=== PATIENT | male | born 1980 | race African-American/Black ===

== ENCOUNTER 2019-10-01 00:09 | Emergency (ER) | payer OTHER ==
[~2019-10-01] VITALS: Ht 177.8 cm; Wt 88.6 kg
[2019-10-01] MEDS ORDERED: IBUPROFEN 800 MG TAB PO ONE (01:30)
[2019-10-01 01:42] VITALS: BP 133/75
--- NOTE | 2019-10-01 08:18 | REP ---
Left Ankle: Four Views. History: Inversion injury. Inability to bear weight. FINDINGS: Four views of the left ankle demonstrate an intact ankle mortise. No acute fracture or subluxation is seen. There is an accessory ossicle distal to the tip of the fibula. There is mild anterior soft tissue swelling. Bones, joints, and soft tissues are otherwise unremarkable. IMPRESSION: No fracture seen. Accessory ossicle at the lateral malleolar tip. Electronically Signed by Jose Mendez MD 10/01/2019 09:49 A
== END 2019-10-01 01:43 | disposition home or self-care (01) ==
LOC: M ED 00:09
DX: S93.402A Sprain of unspecified ligament of left ankle, initial encounter (principal); X50.0XXA Overexertion from strenuous movement or load, initial encounter; Y92.84 Military training ground as the place of occurrence of the external cause; Y99.1 Military activity; M89.8X7 Other specified disorders of bone, ankle and foot

== ENCOUNTER → 2019-12-24 | Outpatient (CLI) | payer OTHER | LOC: M LAB 08:47 | PROVIDERS: ATTEND Orthopaedic Surgery | DX: M47.897 Other spondylosis, lumbosacral region (principal) ==

== ENCOUNTER 2020-01-05 07:30 | Inpatient (IN) | payer OTHER ==
[~2020-01-05] VITALS: Ht 172.7 cm; Wt 87.9 kg
--- NOTE | 2020-01-14 10:21 | HPE ---
DATE OF ADMISSION: 01/15/2020 ATTENDING PHYSICIAN: Dr. Moe Velásquez CHIEF COMPLAINT: Low back pain with radiating symptoms in the right lower extremity. HISTORY OF PRESENT ILLNESS: This is a pleasant 39-year-old male patient with progressively worsening low back pain and radicular symptoms who has failed to improve with conservative management. He has opted for surgical treatment for his continued symptoms. He has been consented for a transforaminal lumbar interbody fusion unilateral right L4, L5. ALLERGIES: NO KNOWN DRUG ALLERGIES. MEDICATIONS: None. PAST MEDICAL HISTORY: None. PAST SURGICAL HISTORY: None. SOCIAL HISTORY: The patient does not smoke or use alcohol. FAMILY HISTORY: Noncontributory. REVIEW OF SYSTEMS: Denies fever, chills, chest pain, shortness breath, nausea, vomiting, diarrhea. Denies any recent upper respiratory or urinary tract infection symptoms. PHYSICAL EXAMINATION: Temperature 98.1, blood pressure 104/68, pulse 42, respirations 14. He is normocephalic, atraumatic. Neck is supple and nontender with no lymphadenopathy or jugular venous distention (JVD). Abdomen is soft and nontender. Bilateral lower extremities are well perfused. He has reproduced back pain with motion of the trunk and tenderness to palpation over the lumbosacral region. Overlying skin of the lumbar region is intact. LABS: Hemoglobin 15.7. IMPRESSION: Spondylosis with radiculopathy, lumbar spondylolisthesis. PLAN: Consented for right L4 through S1 transforaminal lumbar interbody fusion L5-S1 unilateral laminectomy with Dr. Moe Velásquez.
[2020-01-15] VITALS (7 sets, daily range): BP systolic 127–136; BP diastolic 76–81
[2020-01-15] MEDS ORDERED: PERCOCET 5MG/325MG TAB PO ONE (06:00)
[2020-01-15] MEDS ORDERED: LR 1,000 ML IV ONE (06:00)
[2020-01-15] MEDS ORDERED: LIDOCAINE 1% MDV 20ML VIAL SQ PRN (06:00)
[2020-01-15] MEDS ORDERED: GABAPENTIN 300 MG CAP PO ONE (06:00)
[2020-01-15] MEDS ORDERED: ceFAZolin SOD 2 GM in IV 1 EA IV ONE (06:00)
[2020-01-15] MEDS ORDERED: propofoL 200 MG/20 ML VIAL As Ordered ONE (07:12)
[2020-01-15] MEDS ORDERED: HYDROmorphone HCL 2 MG/ML 1ML VIAL (J1170) As Ordered ONE (07:12)
[2020-01-15] MEDS ORDERED: fentaNYL 100 MCG/2 ML INJECTION (J3010) As Ordered ONE (07:12)
[2020-01-15] MEDS ORDERED: MIDAZOLAM INJ 2 MG/2 ML VIAL (J2250) As Ordered ONE (07:12)
[2020-01-15] MEDS ORDERED: LIDOCAINE 2% INJ 100 MG/5 ML SDV (FOR ANES.) As Ordered ONE (07:13)
[2020-01-15] MEDS ORDERED: ROCURONIUM BROMIDE 50 MG/5 ML VIAL As Ordered ONE ×2 (07:13→08:37)
[2020-01-15] MEDS ORDERED: ONDANSETRON 4MG/2ML VIAL (J2405) As Ordered ONE (07:16)
[2020-01-15] MEDS ORDERED: dexameTHASONE 4 MG/ML 1ML VIAL (J1100) As Ordered ONE (07:17)
[2020-01-15] MEDS ORDERED: THROMBIN SOLN 20,000 UNITS KIT As Ordered ONE (07:19)
[2020-01-15] MEDS ORDERED: BUPIVACAINE/EPIN 0.25% 30 ML VIAL As Ordered ONE (07:19)
[2020-01-15] MEDS ORDERED: BUPIVACAINE LIPOSOME/PF 1.3% 20ML VIAL (13.3MG/ML)(EXPAREL)(C9290 PER1MG) As Ordered ONE (07:20)
[2020-01-15] MEDS ORDERED: VANCOMYCIN HCL 500 MG/10 ML VIAL (J3370) As Ordered ONE (07:20)
[2020-01-15] MEDS ORDERED: EPINEPHrine INJ 1 MG/ML 1ML VIAL As Ordered ONE (07:20)
[2020-01-15] MEDS ORDERED: BUPIVACAINE HCL 0.5% 10 ML VIAL As Ordered ONE (07:20)
[2020-01-15] MEDS ORDERED: TRANEXAMIC ACID 100 MG/ML 10ML VIAL As Ordered ONE (07:20)
[2020-01-15] MEDS ORDERED: BACITRACIN PWD 50,000 UNITS VIAL As Ordered ONE (07:21)
[2020-01-15] MEDS ORDERED: KETAMINE HCL 200 MG/20 ML VIAL As Ordered ONE (08:36)
[2020-01-15] MEDS ORDERED: PHENYLephrine HCL 500 MCG/5 ML (100MCG/ML) SYRINGE (J2370) As Ordered ONE (08:37)
[2020-01-15] MEDS ORDERED: ePHEDrine SULFATE 25 MG/5 ML(5MG/ML) SYRINGE As Ordered ONE (08:37)
[2020-01-15] MEDS ORDERED: SUGAMMADEX SODIUM 500 MG/5 ML VIAL (BRIDION) As Ordered ONE (08:38)
[2020-01-15] MEDS ORDERED: DESFLURANE 240 ML INHALANT As Ordered ONE (09:11)
[2020-01-15] MEDS ORDERED: PHENYLEPHRINE INJ 10MG/ML VIAL (J2370) As Ordered ONE (09:32)
[2020-01-15] MEDS ORDERED: ceFAZolin 2 GM/D5W 50 ML IV BAG (J0690 PER 500MG) As Ordered ONE (11:21)
[2020-01-15] MEDS ORDERED: ESMOLOL INJ 100MG/10ML VIAL As Ordered ONE (11:35)
[2020-01-15] MEDS: fentaNYL 100 MCG/2 ML INJECTION (J3010) IV PRN ×4 (13:37→13:52)
[2020-01-15] MEDS ORDERED: METOCLOPRAMIDE INJ 10MG/2ML VIAL (J2765) IV PRN (13:45)
[2020-01-15] MEDS ORDERED: ONDANSETRON 4MG/2ML VIAL (J2405) IV PRN ×2 (13:45→19:30)
[2020-01-15] MEDS ORDERED: LR 1,000 ML IV SCH (13:45)
[2020-01-15] MEDS: PERCOCET 5MG/325MG TAB PO PRN ×3 (14:00→19:49)
[2020-01-15] MEDS ORDERED: CYCLOBENZAPRINE 10 MG TAB PO PRN (14:46)
[2020-01-15] MEDS ORDERED: ACETAMINOPHEN TAB 650MG DOSE (2X325MG) PO PRN (14:46)
[2020-01-15] MEDS ORDERED: HYDROMORPHONE HCL 0.5 MG/ 0.5 ML SYRINGE (J1170 PER 1) IV PRN ×2 (14:46)
[2020-01-15] MEDS ORDERED: PERCOCET 5MG/325MG TAB PO PRN (14:46)
[2020-01-15] MEDS ORDERED: PROMETHAZINE INJ 25 MG/ML VIAL (J2550) IV PRN (14:46)
--- NOTE | 2020-01-15 15:02 | REP ---
Partial lumbar spine series: Two views. History: L4-5 disc failure. 2 minutes 54 seconds of fluoroscopy time is reported. Findings: A sequence of two last image hold fluoroscopically obtained spot radiographs of the lumbar spine document L4-5 fusion hardware placement. Electronically Signed by Jose Mendez MD 01/15/2020 08:07 P
[2020-01-15] MEDS: D5W/LR 1,000 ML IV SCH (15:27)
[2020-01-15] MEDS: ceFAZolin SOD 2 GM in IV 1 EA IV SCH ×2 (15:28→19:47)
[2020-01-15] MEDS: METAMUCIL (PSYLLIUM) PACKET PO SCH (21:00)
[2020-01-16] MEDS: PERCOCET 5MG/325MG TAB PO PRN ×3 (01:54→11:55)
[2020-01-16 02:00] VITALS: BP 112/65
[2020-01-16] MEDS: D5W/LR 1,000 ML IV SCH (03:56)
[2020-01-16] MEDS ORDERED: PERC5TAB12 PO (05:56)
[2020-01-16 06:00] VITALS: BP 112/69
[2020-01-16] MEDS: METAMUCIL (PSYLLIUM) PACKET PO SCH (08:46)
[2020-01-16] MEDS ORDERED: OYSTER SHELL CALCIUM 500 MG TAB PO SCH (09:00)
[2020-01-16] MEDS ORDERED: VITAMIN D (CHOLECALCIFEROL) 400 INTERNATIONAL UNITS TAB PO SCH (09:00)
[2020-01-16 10:00] VITALS: BP 138/83
--- NOTE | 2020-01-20 13:11 | RO ---
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 PROCEDURE PERFORMED: A right L4 unilateral laminectomy for decompression of the thecal sac and exiting nerve root, a right S1 unilateral laminectomy for decompression of the thecal sac and traversing nerve root. Next, a transforaminal interbody fusion posterior combined at L4 to S1 including preparation of the end plates and implantation of fusion device and bone graft, both in the interbody space as well as over the transverse processes on the right at L4 to S1, percutaneous pedicle screws were placed at L4 to S1 bilaterally, right iliac crest bone graft harvest and use, implantation of intervertebral biomechanical device at L4 to S1. Next, also harvested was local autograft for spine surgery. SURGEON: Moe Velásquez MD ASSISTING: PEEWEE Brambila ANESTHESIA: General. ESTIMATED BLOOD LOSS: Was less than 150 mL. COMPLICATIONS: No complications. COMPONENTS USED: Included DePuy VIPER PRIME system, four 45 mm x 5.5 screws and a pair of 5.5 x 45 mm rods, the appropriate connecting rods, the appropriate end caps. Next, additionally utilized a CASCADIA size 9 mm height x 10 mm wide titanium cage/biomechanical intervertebral device. INDICATIONS: Right lower extremity radicular discomfort as well as chronic back pain, radiographic and MRI evidence of transitional anatomy as well as lumbar spondylosis and a right paracentral disc bulge at L4 to S1. The patient has elected for operative intervention. Consent reviewed in detail including a patrica discussion of the pathology involved, the procedure proposed, alternatives including doing nothing and risks, including but not limited to, pain, failure, infection, bleeding blood loss, incomplete relief of symptoms, need for additional surgery and other issues. The patient agreed to proceed with surgery. OPERATIVE COURSE: Identified in the holding area site and side verified. Consent again reviewed with the patient as well as his mother who was present. He agreed to proceed with surgery. He was brought to the operating room and general endotracheal anesthesia was administered. He was then positioned on the Artur frame for exposure of lumbar spine, knees slightly flexed, axillary rolls were utilized. He was sterilely prepped and draped in the usual fashion for exposure. Next, once this was accomplished, biplanar fluoroscopy was set up for the case. Next, I stood on the patient's right side, Mr. Cole on the left side. We initiated the procedure. A time out was accomplished. Fluoroscopy was utilized to plot entry points for percutaneous screws. We began on the patient's left side where percutaneous screws were placed. Incisions outlined with Marcaine with epinephrine made transversely. They were approximately 1.5 cm long to the left of midline, because of the pedicles on the left side at L4 to S1. Next, we also split the posterior lumbar fascia. I then advanced the blunt dilator followed by the VIPER PRIME targeting system. Fluoroscopy was utilized to dock the targeting system to the lateral aspect of the L4 pedicle. It was then advanced across L4 towards the medial wall of the pedicle and we verified progression on lateral biplanar fluoroscopy as well. Once the Guidewire was in the appropriate position, we then advanced the 45 mm screw at L4 level through the pedicle and into the vertebral body. This position was verified during screw placement using biplanar fluoroscopy and the final fluoroscopic images. Next, the S1 level was targeted in the same fashion and this was transitional anatomy, so L4 is just adjacent to S1, again placing the Guidewire followed by advancing the self-tapping 45 mm x 7.5 screws. I did use a 7.5 screw at the S1 level. Next, once this was accomplished on the left, I then made a parasagittal incision just to the right of the spinous processes, about 2 cm, and developed down through skin and subcuticular tissues of the posterior lumbar fascia. We made transverse incisions again about 2 cm in the posterior lumbar fascia on the right side over the pedicles, and on this side we utilized the Jamshidi needle to advance into the pedicle at L4, again verified on biplanar fluoroscopy advancing into the vertebral body of 4. I then placed a Guidewire and then over the Guidewire I tapped using a 6.5 tap at L4. We then withdrew both the tap and the Guidewire. L5 was similarly cannulated and tapped in a similar fashion for later screw placement. Next, once this was accomplished, the posterior lumbar fascia was reflected off of the spinous processes of 4 through S1 on the patient's right side exposing the right L4 to S1 interspace. We dissected over the facet complex of 4, S1 and out over the transverse process of 4 into the lumbarized transverse process of the S1 level. Next, once this was all exposed I identified the previously tapped tracts. Next, Leksell was then utilized to remove the inferior facet of 4. Operating microscope was brought in, Mr. Cole functioning as the certified first assistant utilizing the suction Richard, I utilized the high-speed bur to implement a right unilateral laminectomy of L4 extending superiorly through the bare area of 4, removing the inferior facet remnants of 4 and the medial 70% of the superior facet of S1 lumbosacral junction. I elevated ligamentum flavum using curved curette, removed it using Kerrison's exposing the thecal sac. I identified the traversing nerve root and identified the exiting nerve root. I identified the annulus, bipolar cautery was utilized for hemostasis. Next, we opened the annulus on the right using an 11 blade knife and removed posterior annulus followed by use of conical reamers. Mr. Cole utilized suction Richard to protect the thecal sac and traversing nerve root. I utilized the conical reamers beginning at a size 6 through a size 9. A size 9 blunt reamer was applied and seemed to fit appropriately. I utilized also Ring curettes and rasps. This was to remove cartilaginous endplate. Next, once this was accomplished I irrigated the interspace and I trialed with a size 9 x 32 x 10 mm wide cage. This cage fit appropriately. Next, we verified the cage placement fluoroscopically as well. Next, we obtained the non-trial 9 mm height x 10 mm wide x 32 mm CASCADIA cage. Next, at this stage we removed the microscope from the field. We exposed the right posterior-superior iliac spine. We opened the fascia over the separate incisions for the posterior superior iliac spine. We removed the posterior superior iliac spine using the Leksell's, obtained morselized bone graft using curettes. We had also been collecting bone graft using the suction and a Lukens traps and also the Kerrison's. Next, the wound at the iliac crest was irrigated including irrigation with TXA, packed with thrombin Gelfoam and closed with interrupted stitch. I utilized Exparel solution as a local anesthetic there. Next, the iliac crest bone graft was packed into the cage. Additional iliac crest bone graft was into packed into the bone funnel and this was tamped in along with DBX into the interspace at L4-S1 on the patient's right side. Next, some additional iliac crest fragments were packed into the interspace. We tamped these into place. Next, I then implanted the cage, the non-trial CASCADIA cage packed with iliac crest bone graft into place. Mr. Cole utilized suction Richard to protect the thecal sac. The cage was well seated and this was verified both visually and on fluoroscopy. Next, once this was accomplished, the remaining local bone and small fragments of iliac crest were obtained and they were placed over the transverse process of 4 through the sacral ala/transverse process of the lumbarized S1. Next, once this was accomplished, we had already irrigated including irrigation with TXA solution. Next, connecting rods were then placed. Since we had opened to do the unilateral laminectomy, we were able to place a 45 connecting bharat on the patient's right side, open fashion; however, we needed to place the pedicle screws. We recannulated the pedicle screw tract using the cannula and over the cannula passed the 45 mm x 7.0 screw at L4 and a 45 mm x 7.5 screw at L5. Once these screws were seated and verified fluoroscopically, we then placed the 45 mm connecting bharat open. Next, we secured end caps. We locked the superior end caps using a torque counter-torque device and then we compressed across the L4-S1 pedicle screws on the right. Next, once this was accomplished, we installed the 45 mm connecting bharat on the left, again locked L4 and compressed across L4-S1 on the patient's left side using the torque counter-torque device to do final tightening. Next, final fluoroscopic images in the AP and lateral plane were obtained. Irrigation was again accomplished. We observed for bleeding. There was no active bleeding. We closed posterior lumbar fascia with interrupted stitch. We closed deep dermis with interrupted stitch. Prineo dressing was utilized. The patient was then moved to the hospital bed, extubated and moved to the recovery room in good condition.
--- NOTE | 2020-01-21 00:13 | DSES ---
DATE OF ADMISSION: 01/15/2020 DATE OF DISCHARGE: 01/16/2020 ATTENDING PHYSICIAN: Dr. Moe Velásquez ADMISSION DIAGNOSIS: Lumbosacral spondylosis and spondylolisthesis with radiculopathy. DISCHARGE DIAGNOSIS: Lumbosacral spondylosis and spondylolisthesis with radiculopathy, status post right L4-S1 transforaminal lumbar interbody fusion with an L5-S1 unilateral laminectomy. HISTORY: The patient is a 39-year-old male with progressively worsening low back pain and radicular symptoms. The patient failed to improve with conservative management. He opted for surgical treatment for his continued symptoms and consented for an L4-S1 transforaminal lumbar interbody fusion with a unilateral right laminectomy at L5-S1. OPERATION PERFORMED: Right L4-S1 transforaminal lumbar interbody fusion, L4-S1 unilateral laminectomy. Decompression L4-S1 and fuse L4-S1 using metal hardware cage and screws and bone from bone bank and iliac crest. This is a combined anterior and posterior technique. HOSPITAL COURSE: The patient underwent a right L4-S1 transforaminal lumbar interbody fusion with unilateral laminectomies under general anesthesia. Surgery was uneventful, and his hospital course was without complication. He was discharged on oral pain medications and will resume his preoperative medications and diet. He will take his medications and will resume his preoperative medications as diet. He will take his medications as directed postoperatively. He will followup in our office in 7-10 days for wound check and reevaluation. He was encouraged to contact our office sooner if there is any increase in pain, redness, drainage, problems with bowel or bladder control issues, worsening radicular pain, numbness, tingling or weakness in the extremities or any other concerns. Please see medical record for additional details.
== END 2020-01-16 12:10 | disposition home or self-care (01) | DRG 460 ==
LOC: M OR 01-15 05:59 → M MS5PR 01-15 14:50
PROVIDERS: ADMIT Orthopaedic Surgery; ATTEND Orthopaedic Surgery
PROC: 0QB20ZZ Excision of Right Pelvic Bone, Open Approach (ICD-10-PCS; 2020-01-15)
PROC: 0SG0071 Fusion of Lumbar Vertebral Joint with Autologous Tissue Substitute, Posterior Approach, Posterior Column, Open Approach (ICD-10-PCS; principal; 2020-01-15 07:30)
DX: M43.16 Spondylolisthesis, lumbar region (principal)